=== PATIENT | female | born 1990 | race Caucasian/White ===

== ENCOUNTER 2018-03-07 18:51 | Observation (INO) ==
[2018-03-07 19:18] LABS: Urine Bilirubin Negative (NEGATIVE); Urine Ketone Negative (NEGATIVE); Urine Nitrite Negative (NEGATIVE); Urine Protein 100 mg/dL (NEGATIVE); Urine Urobilinogen Normal (NORMAL); Urine pH 6.5 pH (5.0-7.0)
[2018-03-07] MEDS ORDERED: MAGNESIUM SULFATE IN WATER 50 ML, MAGNESIUM SULFATE IN WATER 50 ML IV ONE ×2 (19:20)
[2018-03-07] MEDS ORDERED: CALCIUM GLUCONATE 4.65 MEQ/10 ML VIAL IV PRN (19:21)
[2018-03-07 19:27] LABS: Hemoglobin 10.7 gm/dL (12.5-16.0); Mean Cell Volume 83.6 fl (78-100); Mean Corpuscular Hemoglobin 27.9 pg (27-31); Mean Corpuscular Hgb Conc 33.4 g/dl (32-36); Mean Platelet Volume 11.1 fl (6.0-9.5); Neutrophil # 6.5 K/mm3 (1.3-6.0); Neutrophil % 65.4 % (42-75.0); Platelet Count 258 K/mm3 (150-450); Red Blood Count 3.83 M/mm3 (4.2-5.4); Red Cell Distribution Width 13.8 % (11.5-14.0)
[2018-03-07 19:28] LABS: Random Urine Total Protein 171.1 mg/dL (0-12)
[2018-03-07] MEDS ORDERED: BETAMETHASONE ACETATE,SOD PHOS 6 MG/ML VIAL IM ONE ×2 (19:28→21:02)
[2018-03-07 19:29] LABS: Urine Appearance Slightly Cloudy (CLEAR); Urine Bacteria TRACE; Urine Blood 5 /ul (NEGATIVE); Urine Color Yellow; Urine RBC >50 /hpf (0-5); Urine WBC None Seen /hpf (0-5)
[2018-03-07] MEDS ORDERED: MAGNESIUM SULFATE IN WATER 1,000 ML IV SCH (19:30)
[2018-03-07 19:39] LABS: Prothrombin Time (Patient) 8.7 Seconds (9.0-11.0)
[2018-03-07 19:40] LABS: INR 0.87 INR (0.90-1.10); Partial Thrombolplastin Time 24.3 Seconds (24-32)
[2018-03-07 19:43] LABS: Albumin * 2.2 gm/dl (3.4-5.0); BUN/Creatinine Ratio 10.7 (9.0-21.6); Bilirubin, Total 0.1 mg/dL (0.0-1.1); Ca. Corrected For Albumin 9.7 mg/dL (8.4-10.2); Calcium * 8.6 mg/dL (7.9-10.9); Carbon Dioxide 23.8 mmol/L (24-32.6); Potassium 3.8 mmol/L (3.4-4.6); Total Protein 6.9 gm/dL (6.2-8.2)
[2018-03-07] MEDS ORDERED: LABETALOL HCL 100 MG TABLET PO STA (20:16)
[2018-03-07 20:23] VITALS: BP 143/67
[2018-03-07] MEDS ORDERED: ACETAMINOPHEN 500 MG TABLET PO STA (20:36)
--- NOTE | 2018-03-07 21:08 | PN ---
Subjective - Date and Time Seen Date: 03/07/18 Subjective Narrative: feeling wanting to pass out Objective Objective Narrative: 27 yo, CF, G1 at 37.4 weeks presents for evaluation of feeling wanting to pass out at dinner time, and still has this feeling off and on. Denies headache, blurry vision. Denies nausea or vomiting. Denies contractions, vaginal bleeding or leaking fluid. Uncomplicated so far except obesity. - Review of Systems Cardiac: Reports: Other - feeling passing out Misc: All systems neg except as marked - Vitals Vitals: Last Vital Signs Temp Pulse 87 03/07/18 20:22 Resp BP 143/67 03/07/18 20:22 Pulse Ox BP 111/69 P 91 O2 97% room air - Abnormal Lab Findings Abnormal Lab Findings: Abnormal Lab Results 03/07/18 03/07/18 03/07/18 Range/Units 19:00 19:20 Unknown RBC 3.83 L (4.2-5.4) M/mm3 Hgb 10.7 L (12.5-16.0) gm/dL Hct 32.0 L (37.0-47.0) % MPV 11.1 H (6.0-9.5) fl Immature Gran % (Auto) 0.50 H (0.001-0.429) % Immature Gran # (Auto) 0.05 H (0.000-0.0310) K/mm3 Neutrophils # 6.5 H (1.3-6.0) K/mm3 PT 8.7 L (9.0-11.0) Seconds INR (Anticoag Therapy) 0.87 L (0.90-1.10) INR Carbon Dioxide (24-32.6) mmol/L Random Glucose (70-110) mg/dL Albumin (3.4-5.0) gm/dl Urine Protein 100 H (NEGATIVE) mg/dL Urine Blood 5 H (NEGATIVE) /ul Prot Sulfosalicylic Acd 4+ H (0) mg/dL Urine RBC >50 H (0-5) /hpf Ur Epithelial Cells 5-10 H (0-5) /hpf U Random Total Protein (0-12) mg/dL U [place] Prot/Creat Ratio (0-199) mg/gm 03/07/18 03/07/18 Range/Units Unknown Unknown RBC (4.2-5.4) M/mm3 Hgb (12.5-16.0) gm/dL Hct (37.0-47.0) % MPV (6.0-9.5) fl Immature Gran % (Auto) (0.001-0.429) % Immature Gran # (Auto) (0.000-0.0310) K/mm3 Neutrophils # (1.3-6.0) K/mm3 PT (9.0-11.0) Seconds INR (Anticoag Therapy) (0.90-1.10) INR Carbon Dioxide 23.8 L (24-32.6) mmol/L Random Glucose 113 H (70-110) mg/dL Albumin 2.2 L (3.4-5.0) gm/dl Urine Protein (NEGATIVE) mg/dL Urine Blood (NEGATIVE) /ul Prot Sulfosalicylic Acd (0) mg/dL Urine RBC (0-5) /hpf Ur Epithelial Cells (0-5) /hpf U Random Total Protein 171.1 H (0-12) mg/dL U [place] Prot/Creat Ratio 2011 H (0-199) mg/gm - Exam Constitutional: Present: Alert, Oriented x3, Cooperative Neck: Present: supple Respiratory: Present: lungs clear, normal breath sounds, no respiratory distress , No rales, No wheezing Cardiovascular/Chest: Present: normal peripheral pulses, regular rate, rhythm, no murmur /Rectal: Present: Other - cervix: posterior and high, not able to reachable Extremity: Present: no calf tenderness, lower extremity edema - 1+ Skin Exam: Present: normal color, warm/dry, no cyanosis Neurologic: Present: other - DTR 2+ bilaterally Eye contact: Present: good eye contact, normal speech Assessment/Plan Plan Narrative: FHR: reassuring, 130s with accels [place]: contractions q4-5 min, not feeling them A: 27 yo, CF, G1 at 37.4 weeks, with syncopal feeling, but normal vitals and reassuring status and with contractions, but cervix high and not reachable. Plan: monitor and po hydration. plan to send to ER for clearance regarding syncopal feeling. Anna Britton MD
== END 2018-03-07 21:00 | disposition short-term general hospital (02) ==
LOC: OBCLINIC 18:51 → OB 19:53 → INTOOBSV 19:53
PROVIDERS: ADMIT Obstetrics & Gynecology; ATTEND Obstetrics & Gynecology
DX: O14.13 Severe pre-eclampsia, third trimester; Z68.43 Body mass index [BMI] 50.0-59.9, adult; O10.013 Pre-existing essential hypertension complicating pregnancy, third trimester; E66.01 Morbid (severe) obesity due to excess calories
CPT/HCPCS: 36415; 59025; 80053; 81001; 82570; 84155; 84156; 85025; 85384; 85610; 85730; 96372; G0378